=== PATIENT | male | born 1960 | race Two or more races ===

== ENCOUNTER 2025-06-30 09:07 | Emergency (ER) | payer OTHER ==
[~2025-06-30] VITALS: Ht 193 cm; Wt 106.6 kg
[2025-06-30 09:08] VITALS: BP 141/80; PULSE 85; RESP 18; TEMP 97.8; O2SAT 97
--- NOTE | 2025-06-30 09:46 | ED.PDOC ---
Musculoskeletal HPI Comments A 64 YEAR OLD MALE PRESENTS TO THE ED WITH COMPLAINT OF BILATERAL LOWER EXTREMITY SWELLING AND REDNESS. PATIENT STATES HE HAS BEEN EXPERIENCING BILATERAL LOWER EXTREMITY SWELLING AND REDNESS FOR THE PAST 1.5 MONTHS. PATIENT DENIES FEVER, CHILLS, SHORTNESS OF BREATH, CHEST PAIN, ABDOMINAL PAIN, NAUSEA, VOMITING, HEADACHE, OR OTHER COMPLAINTS. NO OTHER SYMPTOMS OR MODIFYING FACTORS AT THIS TIME. PATIENT IS ALERT, ORIENTED X 4, AND HAS STEADY GAIT. Chief Complaint: Extremity Swelling Time Seen by MD: 09:12 Reviewed Notes: Nurses Notes, Medications, Allergies Allergies: Coded Allergies: NO KNOWN ALLERGIES (Unverified , 06/30/25) Information Source: Patient Mode of Arrival: Ambulatory Location: Bilateral Extremity Location: Ankle, Calf, Foot, Leg Timing: Months Prehospital treatment: None Severity: Moderate Able to Move Extremity: Yes Bear Weight: Fully Pain: Moderate Mechanism: No Trauma, Spontaneous Circumstances: Spontaneous Onset of Symptoms: Spontaneous Symptoms: Swelling, Pain, Erythema DVT Risk Factors: NONE Last Tetanus: UTD, Unknown Associated signs and symptoms: Swelling, Leg pain Past Medical History PAST MEDICAL HISTORY: Schizophrenia Surgical History: Denies all surgeries Family History Family History: Reviewed,noncontributory to illness Social History Smoker: Non-Smoker Alcohol: Denies ETOH Use Drugs: Denies Drug Use Lives In: Home Constitutional: denies: chills, diaphoresis, fatigue, fever, malaise, sweats, weakness, others EENTM: denies: blurred vision, double vision, ear bleeding, ear discharge, ear drainage, ear pain, ear ringing, eye pain, eye redness, hearing loss, mouth pain, mouth swelling, nasal discharge, nose bleeding, nose congestion, nose pain, photophobia, tearing, throat pain, throat swelling, voice changes, others Respiratory: denies: cough, hemoptysis, orthopnea, SOB at rest, shortness of breath, SOB with excertion, stridor, wheezing, others Cardiovascular: denies: chest pain, dizzy spells, diaphoresis, Dyspnea on exertion, edema, irregular heart beat, left arm pain, lightheadedness, palpitations, PND, syncope, others Gastrointestinal: denies: abdomen distended, abdominal pain, blood streaked bowels, constipated, diarrhea, dysphagia, difficulty swallowing, hematemesis, melena, nausea, poor appetite, poor fluid intake, rectal bleeding, rectal pain, vomiting, others Genitourinary: denies: burning, dysuria, flank pain, frequency, hematuria, incontinence, penile discharge, penile sore, pain, testicle pain, testicle swelling, urgency, others Neurological: denies: dizziness, fainting, headache, left sided numbness, left sided weakness, numbness, paresthesia, pre-existing deficit, right sided numbn ess, right sided weakness, seizure, speech problems, tingling, tremors, weakness, others Musculoskeletal: reports: joint pain, joint swelling, others (BILATERAL LOWER EXTREMITY SWELLING); denies: back pain, gout, muscle pain, muscle stiffness, neck pain Integumetry: reports: rash, others (BILATERAL LOWER EXTREMITY REDNESS); denies: bruises, change in color, change in hair/nails, dryness, laceration, lesions, lumps, wounds Allergic/Immunocompromised: denies: Difficulty Healing, Frequent Infections, Hives, Itching, others Hematologic/Lymphatic: denies: anemia, blood clots, easy bleeding, easy bruising, swollen glands, others Endocrine: denies: excessive hunger, excessive sweating, excessive thirst, excessive urination, flushing, intolerance to cold, intolerance to heat, unexplained weight gain, unexplained weight loss, others Psychiatric: denies: anxiety, bipolar disorder, depression, hopeless, panic dis order, schizophrenia, sleepless, suicidal, others All Other Systems: Reviewed and Negative Physical Exam General Appearance: No Apparent Distress, Normal HEENT: Normal ENT Inspection, PERRL/EOMI, Pharynx Normal, TMs Normal Neck: Full Range of Motion, Non-Tender, Normal, Normal Inspection Respiratory: Chest Non-Tender, Lungs Clear, No Accessory Muscle Use, No Respiratory Distress, Normal Breath Sounds Cardiovascular: No Edema, No JVD, No Murmur, No Gallop, Normal Peripheral Pulses, Regular Rate/Rhythm Breast Exam: Deferred Gastrointestinal: No Organomegaly, Non Tender, No Pulsatile Mass, Normal Bowel Sounds, Soft Genitalia: Deferred Pelvic: Deferred Rectal: Deferred Extremities: No calf tenderness, Normal capillary refill, Normal range of motion, No pedal edema, Swelling (TENDERNESS, REDNESS AND SWELLING ON BILATERAL LOWER LEGS, NO OPEN WOUND SEEN. ), Tender (AND SWELLING WITH REDNESS BILATERAL LOWER LEGS. ) Musculoskeletal : Apperance: Normal Neurologic: Alert, stringing machine tender II-XII nml as Tested, No Motor Deficits, Normal Affect, Normal Mood, No Sensory Deficits Cerebellar Function: Normal Reflexes: Normal Skin: Dry, Warm, Other (ERYTHEMA AND SWELLING NOTED TO BILATERAL LOWER LEGS THAT EXTENDS DOWN TO BILATERAL FEET, NO OPEN WOUNDS SEEN, CONSISTENT WITH CELLULITIS, NO DVT SIGN.) Peripheral Pulses: 2+ carotid (R), 2+ carotid (L), 2+ dorsalis pedis (R), 2+ dorsalis pedis (L) Lymphatic: No Adenopathy Was a procedure done? Was a procedure done?: No Differential Diagnosis EXT Differential Diagnosis: Cellulitis, Deep Vein Thrombosis, Sprain, DJD, Strain Other Differential Diagnosis SUPERFICIAL THROMBOSIS, DEPENDENT EDEMA, CHF, CKF X-Ray, Labs, Meds, VS Vital Signs Date Time Temp Pulse Resp B/P (MAP) Pulse Ox O2 Delivery O2 Flow Rate FiO2 06/30/25 09:08 97.8 85 18 141/80 97 97.8 X-Ray, Labs, Meds, VS Comment EXTERNAL MEDICAL RECORDS REVIEWED: [NONE] INDEPENDENT HISTORIANS: [NONE] SOCIAL DETERMINANTS OF HEALTH: [NONE] LABS ORDERED: NONE REVIEWED AND INTERPRETED RESULTS: NONE IMAGING ORDERED: NONE TREATMENTS ORDERED: PROCEDURES PERFORMED: NONE CRITICAL CARE TIME: NONE I HAVE DISCUSSED THE PATIENT WITH THE ATTENDING PHYSICIAN DR. SOTELO AND HE AGREES WITH THE PATIENT'S PLAN OF CARE. PATIENT WAS INFORMED THAT DUE TO THE SEVERITY OF HIS SWELLING AND REDNESS OF HIS LOWER EXTREMITIES BEING CONSISTENT WITH CELLULITIS, THAT HE WOULD NEED TO BE ADMITTED FOR FURTHER TREATMENT AND EVALUATION. THE PATIENT DECLINED ADMISSION OR TEST AT THIS TIME AND STATED THAT HE WOULD COME BACK TOMORROW DUE TO HAVING ISSUES AT HOME THAT HE NEEDS TO TAKE CARE OF FIRST. PATIENT STATED HE WOULD LIKE TO SIGN OUT AMA. PATIENT WAS INFORMED OF THE RISKS AND CONSEQUENCES ASSOCIATED WITH SIGNING OUT AMA AND HE STILL INSISTED ON LEAVING. PATIENT SIGNED OUT AMA. Time of 1ST Reevaluation: 09:58 Reevaluation 1ST: Unchanged Patient Education/Counseling: Diagnosis, Treatment Family Education/Counseling: Diagnosis, Treatment Departure 1 Departure Time of Disposition: 10:02 Impression: Primary Impression: Cellulitis of both lower extremities Disposition: 07 LEFT AGAINST MEDICAL ADVICE Condition: Stable Critical Care Note Critical Care Time?: No Stability Stability form required: No I personally scribed for MIGUELITO DANIELS ([email or web address]) on 06/30/25 at 09:46. Electronically submitted by Artemio Heck ([email or web address]). MIGUELITO DANIELS Jun 30, 2025 09:46
== END 2025-06-30 09:42 | disposition left against medical advice (07) ==
LOC: ER 09:07
DX: L03.115 Cellulitis of right lower limb (principal); L03.116 Cellulitis of left lower limb; F20.9 Schizophrenia, unspecified